=== PATIENT | female | born 1965 | race Caucasian/White ===

== ENCOUNTER 2023-06-16 16:40 | Emergency (ER) | payer OTHER ==
[2023-06-16 16:47] VITALS: BP 134/83; PULSE 59; RESP 18; TEMP 97.7; BMI 29.2
[2023-06-16] MEDS ORDERED: LIDOCAINE 5% TOPICAL PATCH TP ONE (17:38)
[2023-06-16] MEDS ORDERED: IBUPROFEN 400 MG TABLET (FP) PO ONE ×2 (17:39→18:05)
[2023-06-16] MEDS ORDERED: LIDOCAINE 5% TOPICAL PATCH ONE (18:05)
== END 2023-06-16 19:07 | disposition home or self-care (01) ==
LOC: JER 16:40 → JERFT 16:40
DX: M54.42 Lumbago with sciatica, left side (principal)
CPT/HCPCS: 99283-25

== ENCOUNTER 2023-10-04 16:38 | Observation (INO) | payer OTHER ==
[2023-10-04 16:57] VITALS: BMI 30.1
[2023-10-04] MEDS ORDERED: ACETAMINOPHEN 1000 MG/100 ML BAG IVPB ONE (17:57)
[2023-10-04] MEDS ORDERED: MECLIZINE HCL 25 MG TABLET (FP) PO ONE (17:57)
[2023-10-04] MEDS ORDERED: SODIUM CHLORIDE 0.9% 500 ML INFUS.BAG IV ONE (17:57)
[2023-10-04] MEDS ORDERED: MECLIZINE HCL 25 MG TABLET (FP) ONE (18:02)
[2023-10-04] MEDS ORDERED: ACETAMINOPHEN INJECTION 100 ML IVPB ONE (18:02)
[2023-10-04 18:38] LABS: BASO % 0.7 % (0-2.0); EOS % 1.6 % (0-4.5); HEMATOCRIT 40.6 % (32.4-45.2); HEMOGLOBIN 13.4 GM/dL (10.7-15.3); LYMPH % 42.2 % (8-40); MCH 29.9 pg (25.7-33.7); MCHC 33.1 g/dl (32.0-36.0); MEAN CELL VOLUME 90.4 fl (80-96); MEAN PLT VOLUME 7.9 fl (7.5-11.1); MONO % 8.9 % (3.8-10.2); NEUT % 46.6 % (42.8-82.8); PLATELET COUNT 240 10^3/uL (134-434); RBC 4.49 M/mm3 (3.60-5.2); RDW 13.6 % (11.6-15.6); WHITE BLOOD COUNT 6.9 K/mm3 (4.0-10.0)
[2023-10-04] MEDS ORDERED: SULFAMETHOXAZOLE/TRIMETHOPRIM 800MG/160MG D.S. TABLET ONE (18:41)
[2023-10-04] MEDS ORDERED: ASPIRIN 81 MG CHEWABLE TABLETS PO ONE (18:45)
[2023-10-04] MEDS ORDERED: ASPIRIN 81 MG CHEWABLE TABLETS ONE (18:49)
[2023-10-04 18:58] LABS: POTASSIUM 4.6 mmol/L (3.5-5.1)
[2023-10-04 18:59] LABS: BLOOD UREA NITROGEN 18.9 mg/dL (7-18); CALCIUM 9.4 mg/dL (8.5-10.1)
[2023-10-04 19:00] LABS: ALBUMIN 3.7 g/dl (3.4-5.0)
[2023-10-04 19:03] LABS: CREATININE 0.9 mg/dL (0.55-1.3)
[2023-10-04 19:04] LABS: BILIRUBIN,TOTAL 0.4 mg/dL (0.2-1); TOT PROT 6.7 g/dl (6.4-8.2)
[2023-10-04 23:32] LABS: URINE APPEARANCE CLOUDY; URINE BILIRUBIN NEGATIVE (NEGATIVE); URINE COLOR YELLOW; URINE GLUCOSE (UA) NEGATIVE (NEGATIVE); URINE KETONE NEGATIVE (NEGATIVE); URINE LEUK ESTERASE NEGATIVE (NEGATIVE); URINE NITRITE NEGATIVE (NEGATIVE); URINE PROTEIN NEGATIVE (NEGATIVE)
[2023-10-05 06:58] LABS: HEMATOCRIT 41.8 % (32.4-45.2); HEMOGLOBIN 13.7 GM/dL (10.7-15.3); MCH 29.9 pg (25.7-33.7); MCHC 32.8 g/dl (32.0-36.0); MEAN CELL VOLUME 91.3 fl (80-96); MEAN PLT VOLUME 8.5 fl (7.5-11.1); PLATELET COUNT 209 10^3/uL (134-434); RBC 4.57 M/mm3 (3.60-5.2); RDW 13.5 % (11.6-15.6); WHITE BLOOD COUNT 6.1 K/mm3 (4.0-10.0)
[2023-10-05 07:08] LABS: POTASSIUM 4.2 mmol/L (3.5-5.1)
[2023-10-05 07:11] LABS: CALCIUM 8.4 mg/dL (8.5-10.1)
[2023-10-05 07:15] LABS: CREATININE 0.7 mg/dL (0.55-1.3)
[2023-10-05] MEDS ORDERED: ATENOLOL 25 MG TABLET (FP) PO SCH (10:00)
[2023-10-05] MEDS ORDERED: PATIENT'S OWN MEDICATION (NON-FORMULARY) (Alendronate Sodium [Alendronate Sodium] 70 MG Ta PO SCH (10:00)
[2023-10-05] MEDS ORDERED: amLODIPine BESYLATE 2.5 MG TABLET (FP) PO SCH (10:00)
[2023-10-05] MEDS ORDERED: ENOXAPARIN NA (PORCINE) 40 MG/0.4 ML DISP.SYRIN SQ SCH (10:00)
[2023-10-05] MEDS ORDERED: ENOXAPARIN NA (PORCINE) 40 MG/0.4 ML DISP.SYRIN SQ ONE (10:37)
[2023-10-05] MEDS ORDERED: ATORVASTATIN CA 20 MG TABLET (FP) ONE (10:37)
[2023-10-05] MEDS ORDERED: ATENOLOL 25 MG TABLET (FP) ONE (10:37)
[2023-10-05] MEDS ORDERED: amLODIPine BESYLATE 2.5 MG TABLET (FP) ONE (10:37)
[2023-10-05 16:38] VITALS: BP 129/75; PULSE 64; RESP 17; TEMP 98.2
[2023-10-05] MEDS ORDERED: ATORVASTATIN CA 20 MG TABLET (FP) PO SCH (22:00)
== END 2023-10-05 17:30 | disposition home or self-care (01) ==
LOC: JER 16:38 → JERBED 18:38
PROVIDERS: ADMIT Internal Medicine; ATTEND Internal Medicine
PROC: 3E033NZ Introduction of Analgesics, Hypnotics, Sedatives into Peripheral Vein, Percutaneous Approach (ICD-10-PCS; principal; 2023-10-04)
PROC: 3E023GC Introduction of Other Therapeutic Substance into Muscle, Percutaneous Approach (ICD-10-PCS; 2023-10-04)
PROC: 3E0337Z Introduction of Electrolytic and Water Balance Substance into Peripheral Vein, Percutaneous Approach (ICD-10-PCS; 2023-10-04)
DX: R07.89 Other chest pain (principal); R00.2 Palpitations; R06.02 Shortness of breath; E78.5 Hyperlipidemia, unspecified; M54.30 Sciatica, unspecified side; M54.9 Dorsalgia, unspecified; R42 Dizziness and giddiness; R07.9 Chest pain, unspecified; I10 Essential (primary) hypertension; R53.83 Other fatigue
CPT/HCPCS: 0241U-QW; 36415; 70551-TC; 71045-TC-FY; 71275-TC; 80048; 80053; 80061; 81003; 83036; 84439; 84443; 84484; 85025; 85027; 87086; 87186; 93005; 93010; 93306-TC; 93351; 96372; 96374; 99285-25; G0378; Q9967

== ENCOUNTER 2023-10-29 19:46 | Emergency (ER) | payer OTHER ==
[2023-10-29 19:51] VITALS: BP 148/79; PULSE 58; RESP 18; TEMP 98.3; BMI 29.4
[2023-10-29] MEDS ORDERED: DEXAMETHASONE SOD PHOSPHATE 10 MG/1 ML VIAL PO ONE (20:19)
[2023-10-29] MEDS ORDERED: diphenhydrAMINE HCL 12.5 MG/5 ML UNIT-DOSE CUPS PO ONE (20:20)
[2023-10-29] MEDS ORDERED: DEXAMETHASONE SOD PHOSPHATE 10 MG/1 ML VIAL ONE (21:17)
[2023-10-29] MEDS ORDERED: diphenhydrAMINE HCL 12.5 MG/5 ML UNIT-DOSE CUPS ONE (21:18)
== END 2023-10-29 21:28 | disposition home or self-care (01) ==
LOC: JERFT 19:46
DX: L50.0 Allergic urticaria (principal)
CPT/HCPCS: 99283-25; J1100

== ENCOUNTER 2024-02-01 22:02 | Emergency (ER) | payer OTHER ==
[2024-02-01 22:07] VITALS: BP 127/78; PULSE 52; RESP 18; TEMP 98; BMI 29.4
[2024-02-01] MEDS ORDERED: FAMOTIDINE 20 MG TABLET ONE (23:04)
[2024-02-01] MEDS ORDERED: diphenhydrAMINE HCL 25 MG CAPSULE (FP) PO ONE (23:04)
[2024-02-01] MEDS ORDERED: DEXAMETHASONE SOD PHOSPHATE 10 MG/1 ML VIAL ONE (23:04)
[2024-02-01] MEDS: DIPHENHYDRAMINE HCL 25 MG/10 ML CUP PO ONE (23:08)
[2024-02-01] MEDS: FAMOTIDINE 20 MG TABLET PO ONE (23:08)
[2024-02-01] MEDS: DEXAMETHASONE SOD PHOSPHATE 10 MG/1 ML VIAL IM ONE (23:08)
== END 2024-02-01 23:09 | disposition home or self-care (01) ==
LOC: JER 22:02 → JERFT 22:02
PROC: 3E023GC Introduction of Other Therapeutic Substance into Muscle, Percutaneous Approach (ICD-10-PCS; principal; 2024-02-01)
DX: L23.9 Allergic contact dermatitis, unspecified cause (principal); R21 Rash and other nonspecific skin eruption
CPT/HCPCS: 99284-25; J1100

== ENCOUNTER 2024-06-09 11:38 | Emergency (ER) | payer OTHER ==
[2024-06-09 11:53] VITALS: RESP 18; TEMP 98.2; BMI 30.1
[2024-06-09 15:30] VITALS: BP 145/68; PULSE 67
== END 2024-06-09 15:31 | disposition short-term general hospital (02) ==
LOC: JER 11:38
DX: H53.8 Other visual disturbances (principal); R51.9 Headache, unspecified; Z20.822 Contact with and (suspected) exposure to COVID-19
CPT/HCPCS: 0241U-QW; 99285-25